=== PATIENT | male | born 1945 | race Caucasian/White ===

== ENCOUNTER 2024-01-10 20:50 | Emergency (ER) | payer OTHER, SELFPAY ==
[2024-01-10 20:53] VITALS: BP 178/71; PULSE 78; TEMP 36.6; O2SAT 95; BMI 25.8
--- NOTE | 2024-01-10 21:13 | ED_ITS ---
HPI - Skin/Abscess/Foreign Bdy General Chief complaint: Skin/Abscess/Foreign Body Stated complaint: EAR Time Seen by Provider: 01/10/24 21:13 Source: patient Mode of arrival: ambulance Limitations: no limitations History of Present Illness HPI narrative: patient had large biopsy right ear by dermatology 3 days ago. removed dressing and site started bleeding. Patient states they did have to cauterize bleeding after the surgery. He is without other complaint Related Data Allergies Allergy/AdvReac Type Severity Reaction Status Date / Time No Known Drug Allergies Allergy Verified 01/10/24 20:53 Review of Systems 2 ROS0 Status of ROS 10 or more systems reviewed and unremark able except as noted in history and below Exam Constitutional Vital Signs, click to edit/add: Last Vital Signs Temp 97.8 F 01/10/24 20:53 Pulse 78 01/10/24 20:53 Resp 18 01/10/24 20:53 BP 178/71 H 01/10/24 20:53 Pulse Ox 95 01/10/24 20:53 O2 Del Method Room Air 01/10/24 20:53 Common normals: no apparent distress, average body habitus, oriented x3, no limitations, healthy appearing, alert and well nourished [facility] Head images: 2 1. large biopsy including partial removal of cartilage. pulsating bleeding. Neg swelling or erythema Eye Common normals: EOMs intact bilaterally and conjunctivae normal Respiratory Common normals: normal respiratory effort, no retractions and no use of accessory muscles Cardio Common normals: regular rate and regular rhythm Extremity Common normals: normal to inspection and full ROM Neuro Common normals: oriented x3, CN's II-XII intact bilaterally, moves all extremities and no focal motor deficits Psych Appearance: grossly normal Course Vital Signs Vital signs: Vital Signs Temperature 97.8 F 01/10/24 20:53 Pulse Rate 78 01/10/24 20:53 Respiratory Rate 18 01/10/24 20:53 Blood Pressure 178/71 H 01/10/24 20:53 Pulse Oximetry 95 01/10/24 20:53 Oxygen Delivery Method Room Air 01/10/24 20:53 Temperature 97.8 F 01/10/24 20:53 Pulse Rate 78 01/10/24 20:53 Respiratory Rate 18 01/10/24 20:53 Blood Pressure 178/71 H 01/10/24 20:53 Pulse Oximetry 95 01/10/24 20:53 Oxygen Delivery Method Room Air 01/10/24 20:53 MDM - Skin/Abscess/Foreign Bdy MDM Narrative Medical decision making narrative: patient presents with bleed from recent surgical site right ear biopsy. large biopsy including partial cartilage removal. small pulsating bleed. AgNo3 applied to help control bleeding and has been effective. Will continue to monitor in the department for now patient monitored and no recurrence of bleed at this time. Ear dressed by nursing after application of gel foam and patient discharged home Discharge Plan Discharge Chief Complaint: Skin/Abscess/Foreign Body Clinical Impression: Bleeding from wound Patient Disposition: Home, Self-Care Print Language: [place]ish Instructions: Laceration Without Closure (ED) Additional Instructions: do not change dressing until saturday Referrals: DIANNE ALSTON [Primary Care Provider] - 1 week
--- NOTE | 2024-01-10 21:17 | PC.NURSE ---
PT HAD SKIN CA REMOVED FROM RIGHT UPPER EARLOBE ON AT DR BHARATHI STEVENS. PT CHANGED BANDAGE AND SURGICAL SITE WOULD NOT STOP BLEEDING. PHYSICIAN AT BEDSIDE. PULSATILE BLOOD FLOW. SILVER NITRATE APPLIED.
[2024-01-10] MEDS: SURGIFOAM GEL SPONGE SIZE 100 1 EACH TOPICAL (22:08)
[2024-01-10] MEDS: SILVER NITRATE APPLICATOR STICK 3 APPLIC TOPICAL (22:08)
[2024-01-10 22:16] VITALS: BP 162/88
== END 2024-01-10 22:20 | disposition home or self-care (01) ==
PROVIDERS: Emergency Provider Internal Medicine
DX: L76.21 Postprocedural hemorrhage of skin and subcutaneous tissue following a dermatologic procedure (principal)
CPT/HCPCS: 99284